=== PATIENT | female | born 1945 | race Caucasian/White ===

== ENCOUNTER 2019-07-01 13:49 | Emergency (ER) | payer OTHER ==
[~2019-07-01] VITALS: Ht 162.6 cm; Wt 59.0 kg
[2019-07-01] MEDS ORDERED: ZESTRIL20 MG PO (14:02)
[2019-07-01] MEDS ORDERED: METROTEXATE (14:02)
[2019-07-01] MEDS ORDERED: FLEXERIL (14:02)
== END 2019-07-01 14:47 | disposition home or self-care (01) ==
LOC: ER 13:49
DX: M79.18 Myalgia, other site (principal)